=== PATIENT | female | born 1940 | race Caucasian/White ===

== ENCOUNTER 2019-01-07 02:24 | Observation (INO) ==
--- NOTE | 2019-01-07 02:54 | ERNOTE ---
Time Seen by Provider: 01/07/19 02:45 Stated Complaint: SOB.DIZZY Presenting Symptoms:: cough Source: patient Exam Limitations: no limitations Immunizations: IMMUNIZATION HX Immunizations Up to Date Yes History of Influenza Vaccine Yes Hx Pneumococcal Vaccination Yes Allergies/Adverse Reactions: Allergies azithromycin Allergy (Verified 01/07/19 02:35) RASH Sulfa (Sulfonamide Antibiotics) Allergy (Verified 01/07/19 02:35) RASH Home Medications: HOME MEDICATIONS Polyethylene Glycol 3350 [Miralax] 17 gm PO DAILY #527 gm 05/05/15 [Last Taken Unknown] cholecalciferol (vitamin D3) 5,000 unit capsule 5,000 unit PO DAILY 05/24/18 [Last Taken 10/29/17] mecobalamin (vitamin B12) PO DAILY 05/24/18 [Last Taken 10/22/16 15:32] ranitidine 150 mg tablet 150 mg PO BID tab 05/24/18 [Last Taken 12/08/17 15:20] topiramate 25 mg tablet 25 mg PO BID 05/24/18 [Last Taken 12/09/17 15:22] albuterol sulfate HFA 90 mcg/actuation aerosol inhaler 2 inh IH Q4H PRN #18 g 05/31/18 [Last Taken 01/07/19] buspirone 15 mg tablet 15 mg PO TID #90 tab 07/28/18 [Last Taken Unknown] atorvastatin 20 mg tablet 20 mg PO DAILY #30 tab 08/26/18 [Last Taken Unknown] blood sugar diagnostic strips See Dose Instructions .ROUTE .MEDSUPPLY #100 ea 08/28/18 [Last Taken Unknown] fluticasone 50 mcg/actuation nasal spray,suspension 2 spray AJAY DAILY #47.4 g 08/28/18 [Last Taken Unknown] metoprolol succinate ER 25 mg tablet,extended release 24 hr 12.5 mg PO DAILY #45 tab 08/28/18 [Last Taken Unknown] lancets See Dose Instructions .ROUTE .MEDSUPPLY #100 ea 09/01/18 [Last Taken Unknown] gabapentin 300 mg capsule 300 mg PO HS #90 cap 10/29/18 [Last Taken Unknown] metformin 500 mg tablet 500 mg PO BID #60 tab 11/04/18 [Last Taken Unknown] ipratropium bromide 0.02 % solution for inhalation 2.5 ml IH Q6H #150 ml 11/11/18 [Last Taken Unknown] - History of Present Ilness Narrative: Pt had a sinus infection a week ago. finished antibiotics but continues to have shortness of breath. Timing: constant Severity: moderate Frequency/Possible Cause: Reports: occasional episodes Modifying Factors - Improves: Reports: antibiotics - did not help Modifying Factors - Worsens: Reports: coughing, lying down Associated Symptoms: Reports: chest pain/soreness, shortness of breath, nasal congestion, nasal drainage Prior Treatment: Reports: recently seen, treated by physician Review of Systems - Review of Systems Constitutional: Present: recent illness, fever, chills, fatigue, malaise EYE: Absent: vision changes ENT: Present: nose congestion, nasal drainage Respiratory: Present: shortness of breath, cough Cardiology: Present: palpitations Gastrointestinal/Abdominal: Absent: nausea, vomiting Genitourinary: Absent: dysuria Musculoskeletal: Absent: back pain, muscle pain Skin: Absent: rash Neurological: Present: dizziness/light-headedness Endocrine: Present: excessive sweating Medical History (Last Reviewed 01/07/19 @ 06:36 by Nelson Pang DO) Allergic rhinitis Anxiety Asthma COPD (chronic obstructive pulmonary disease) Colonic polyp Diabetes mellitus, type II Diverticulitis Eczema GERD (gastroesophageal reflux disease) Onset Date: 04/28/14 Trial with zantac, may also help her AR Hyperlipidemia Hypertension, essential IBS (irritable bowel syndrome) Migraine Onset Date: 04/28/14 Osteoarthritis Osteopenia Onset Date: 10/29/17 Ovarian cyst Restless leg syndrome Sigmoid stricture ureteral stent placement Onset Date: 03/05/05 Aher/ureteral stents Surgical History: Surgical History (Last Reviewed 01/07/19 @ 06:36 by Nelson Pang DO) H/O cystoscopy Onset Date: 03/05/05 Aher/bilateral retrograde pyelogram H/O exploratory laparotomy Onset Date: 1997 H/O ventral hernia repair Onset Date: 09/10/05 Hebertguely/composite mesh History of bowel resection Onset Date: 03/05/05 Kulwant; low anterior resection w/end to end anastomosis, lysis of adhesions, closure of midline abd hernias History of colonoscopy Onset Date: 06/15/10 with Biopsy, Kulwant, adenomatous tissue, 06/15/2010 tubular adenoma History of esophagogastroduodenoscopy (EGD) Onset Date: 07/09/06 04/02/2006, 07/09/2006 Peasley/Mild chronic antrum gastritis History of knee replacement procedure of right knee Onset Date: 11/19/06 History of salpingo-oophorectomy Onset Date: 1997 Left Hx of arthroscopic knee surgery Onset Date: ~2006 right, 1999' and 2006 S/P epidural steroid injection Onset Date: 01/08/08 09/24/2004, 01/08/2008 L5-S1 Family History: Family History (Last Reviewed 01/07/19 @ 06:36 by Nelson Pang DO) Brother Healthy x2 Brother No problems noted. Father , 70"s Diabetes Heart disease Mother , 82 Cancer/unknown type Cancer Sister No problems noted. Sister No problems noted. Social History: Preferred Language Indonesian Smoking Status Former smoker Psych History No pertinent hx Alcohol Use none Drug Use none (Last Reviewed 12/21/18 @ 10:51 by Tamie Cabrera RN) No Social History Section defined Physical Exam - Physical Exam General Appearance: Present: wd/wn, alert, mild distress Head Exam: Present: normal inspection, no evidence of injury Ears, Nose, Throat: Present: nasal congestion, normal pharynx Neck: Present: normal inspection, nontender Respiratory: Present: no respiratory distress, expiration (prolonged), wheezing - expiratory, intermittent Cardiovascular/Chest: Present: no murmur, tachycardia Gastrointestinal/Abdominal: Present: normal bowel sounds, nontender, nondistended Back Exam: Present: normal inspection, no CVA tenderness Extremity Exam: Present: normal inspection, normal range of motion, no edema Neurological Exam: Present: alert, oriented, no motor/sensory deficits Skin Exam: Present: normal color, warm/dry Lymphatic Exam: Present: no adenopathy Progress - Results and Orders Patient's Lab Results:: I have reviewed the patient's lab results. - Vital Signs Patient's Vital Signs:: I have reviewed the patient's vital signs. Vital Signs: Vital Signs 01/07/19 02:31 Temperature 36.7 C Pulse Rate 127 H Respiratory Rate 26 H Blood Pressure 133/76 O2 Sat by Pulse Oximetry 91 L - EKG EKG #1 EKG: supraventricular tachycardia, nonspecific ST T wave changes EKG read: Interp. by me - X-Ray X-Ray #1 X-Ray: chest Interpretation: Interp. by me X-ray Comments: Hyperventilation, no infiltrate or effusion. - CT/Ultrasound CT/Ultrasound Narrative: CTA chest- No PE, no infiltrate or effusion thyroid nodularity US thyroid may be helpful. - Progress/Reassessment Chief Complaint: Upper Respiratory Symptoms Progress:: Improved Progress Note-Subjective: 01/07/19 06:[address] Joyce at 05:30 about the patient and she agrees with observation admission. Departure Clinical Impression: Acute exacerbation of chronic obstructive pulmonary disease (COPD) UTI (urinary tract infection) Qualifiers: Urinary tract infection type: acute pyelonephritis Qualified Code(s): N10 - Acute pyelonephritis Sepsis Qualifiers: Sepsis type: sepsis due to unspecified organism Qualified Code(s): A41.9 - Sepsis, unspecified organism - Departure Disposition: Still a patient Condition: Fair
[2019-01-07 03:10] LABS: Hemoglobin 15.2 gm/dL (12.5-16.0); Mean Cell Volume 97.7 fl (78-100); Mean Corpuscular Hemoglobin 32.3 pg (27-31); Mean Platelet Volume 8.9 fl (8-12.5); Neutrophil # 13.6 K/mm3 (1.3-6.0); Neutrophil % 88.4 % (42-75.0); Platelet Count 173 K/mm3 (150-450); Red Blood Count 4.71 M/mm3 (4.2-5.4); Red Cell Distribution Width 12.5 % (11.5-14.0); White Blood Count 15.4 K/mm3 (4.0-10.5)
[2019-01-07 03:33] LABS: Albumin * 3.8 gm/dl (3.4-5.0); Anion Gap 16.9 mmol/L (6.8-13.8); BUN/Creatinine Ratio 27.4 (9.0-21.6); Bilirubin, Total 0.9 mg/dL (0.0-1.1); Ca. Corrected For Albumin 9.1 mg/dL (8.4-10.2); Calcium * 9.3 mg/dL (7.9-10.9); Carbon Dioxide 24.9 mmol/L (24-32.6); Potassium 3.8 mmol/L (3.4-4.6); Total Protein 7.1 gm/dL (6.2-8.2)
[2019-01-07 03:46] LABS: Urine Bilirubin Negative (NEGATIVE); Urine Blood 25 /ul (NEGATIVE); Urine Ketone 5 mg/dL (NEGATIVE); Urine Protein 30 mg/dL (NEGATIVE); Urine Urobilinogen Normal (NORMAL)
[2019-01-07 03:52] LABS: Urine Appearance Cloudy (CLEAR); Urine Bacteria 3+; Urine Color Yellow; Urine Nitrite Positive (NEGATIVE); Urine RBC TRACE /hpf (0-5); Urine WBC >50 /hpf (0-5)
[2019-01-07] MEDS ORDERED: PIPERACILLIN SODIUM/TAZOBACTAM 3.375 GM in DEXTROSE 5 % IN WATER 100 ML IV ONE ×2 (06:00)
[2019-01-07] MEDS ORDERED: ALBUTEROL SULFATE 2.5 MG/0.5 ML VIAL.NEB IH PRN ×2 (06:25→07:00)
[2019-01-07] MEDS: ALBUTEROL SULFATE/IPRATROPIUM 3 ML NEBU IH SCH ×3 (07:15→18:19)
[2019-01-07] MEDS ORDERED: NORMAL SALINE 1,000 ML IV ONE (07:50)
--- NOTE | 2019-01-07 08:19 | HP ---
Chief Complaint - Chief Complaint Date of Service: 01/07/19 Time of Service: 08:14 Chief Complaint: Short of breath, with chills. History of Present Illness: Patient states that she has had some breathing issues for the last couple weeks. She has been seen and treated for sinus infection, but had only minimal improvement of her shortness of breath. She denies any fevers or chills, chest pain, PND or orthopnea. She denies any lower extremity swelling or leg cramps when walking or any urinary tract symptoms other than frequency. The day prior to admission she had significant worsening of her shortness of breath, associated with chills, but still no fevers. In the ER she was noted to be in moderate respiratory distress, with respiratory rate in the mid 20s and oxygen levels down to 90% on room air. Chest x-ray did show hyperinflation of the lungs with emphysematous changes, but no focal findings concerning for pneumonia. Her white count was 15,000 and her lactic acid was 2.4. Her d-dimer was slightly elevated at 0.7, so CTA of the chest was done but no findings consistent with a PE. UA did show concerns for possible pyelonephritis. Patient was admitted at least for observation given her significant labs, tachypnea and relative hypoxia. Also of concern was her elevated lactic acid. She was started on IV antibiotics, O2 to keep her sats in the low to mid 90s and given scheduled DuoNeb treatments. No IV steroids were given due to her history of diabetes and her sugars already been in the 200s. After seeing patient she does not look septic, but definitely is not her typical baseline. I do anticipate her being able to go home after with one midnight stay. Medical History (Last Reviewed 01/07/19 @ 08:29 by Verito Murphy RN) Allergic rhinitis Anxiety Asthma COPD (chronic obstructive pulmonary disease) Colonic polyp Diabetes mellitus, type II Diverticulitis Eczema GERD (gastroesophageal reflux disease) Onset Date: 04/28/14 Trial with zantac, may also help her AR Hyperlipidemia Hypertension, essential IBS (irritable bowel syndrome) Migraine Onset Date: 04/28/14 Osteoarthritis Osteopenia Onset Date: 10/29/17 Ovarian cyst Restless leg syndrome Sigmoid stricture ureteral stent placement Onset Date: 03/05/05 Aher/ureteral stents Surgical History: Surgical History (Last Reviewed 01/07/19 @ 08:30 by Verito Murphy RN) H/O cystoscopy Onset Date: 03/05/05 Aher/bilateral retrograde pyelogram H/O exploratory laparotomy Onset Date: 1997 H/O ventral hernia repair Onset Date: 09/10/05 Tinguely/composite mesh History of bowel resection Onset Date: 03/05/05 Tinguely; low anterior resection w/end to end anastomosis, lysis of adhesions, closure of midline abd hernias History of colonoscopy Onset Date: 06/15/10 with Biopsy, Kulwant, adenomatous tissue, 06/15/2010 tubular adenoma History of esophagogastroduodenoscopy (EGD) Onset Date: 07/09/06 04/02/2006, 07/09/2006 Peasley/Mild chronic antrum gastritis History of knee replacement procedure of right knee Onset Date: 11/19/06 History of salpingo-oophorectomy Onset Date: 1997 Left Hx of arthroscopic knee surgery Onset Date: ~2006 right, 1999's and 2006 S/P epidural steroid injection Onset Date: 01/08/08 09/24/2004, 01/08/2008 L5-S1 Family History: Family History (Last Updated 01/07/19 @ 08:31 by Verito Murphy RN) Brother Healthy x2 COPD (chronic obstructive pulmonary disease) Brother No problems noted. Father , 70"s Diabetes Heart disease Mother , 82 Cancer/unknown type Cancer Sister No problems noted. Sister No problems noted. Social History: Preferred Language Ivorian Smoking Status Former smoker Psych History No pertinent hx Alcohol Use none Drug Use none (Last Reviewed 12/21/18 @ 10:51 by Tamie Cabrera RN) No Social History Section defined Review Of Systems (GEN) - Review of Systems Generalized/Overall Review: Present: Weakness, Chills, Fatigue. Absent: Fever EENTM: Present: No Symptoms Reported Respiratory: Present: Cough, Shortness of Breath, Wheezing. Absent: Orthopnea Cardiac: Absent: Chest Pain, Edema, Palpitations Abdominal: Present: No Symptoms Reported Genitourinary: Present: Frequency. Absent: Burning, Itching, Urgency Musculoskeletal: Present: Back Pain Neurological: Present: No Symptoms Reported Skin: Present: No Symptoms Reported Endocrine: Present: No Symptoms Reported Immunizations: IMMUNIZATION HX Immunizations Up to Date Yes History of Influenza Vaccine Yes Hx Pneumococcal Vaccination Yes Allergies/Adverse Reactions: Allergies Allergy/AdvReac Type Severity Reaction Status Date / Time azithromycin Allergy RASH Verified 01/07/19 08:31 Sulfa (Sulfonamide Allergy RASH Verified 01/07/19 08:31 Antibiotics) Home Medications: HOME MEDICATIONS cholecalciferol (vitamin D3) 5,000 unit capsule 5,000 unit PO DAILY 05/24/18 [Last Taken 10/29/17] ranitidine 150 mg tablet 150 mg PO BID tab 05/24/18 [Last Taken 12/08/17 15:20] topiramate 25 mg tablet 25 mg PO BID 05/24/18 [Last Taken 12/09/17 15:22] atorvastatin 20 mg tablet 20 mg PO DAILY #30 tab 08/26/18 [Last Taken Unknown] blood sugar diagnostic strips See Dose Instructions .ROUTE .MEDSUPPLY #100 ea 08/28/18 [Last Taken Unknown] fluticasone 50 mcg/actuation nasal spray,suspension 2 spray AJAY DAILY #47.4 g 08/28/18 [Last Taken Unknown] metoprolol succinate ER 25 mg tablet,extended release 24 hr 12.5 mg PO DAILY #45 tab 08/28/18 [Last Taken Unknown] lancets See Dose Instructions .ROUTE .MEDSUPPLY #100 ea 09/01/18 [Last Taken Unknown] gabapentin 300 mg capsule 300 mg PO HS #90 cap 10/29/18 [Last Taken Unknown] metformin 500 mg tablet 500 mg PO BID #60 tab 11/04/18 [Last Taken Unknown] Albuterol Sulfate [Proair Hfa] 2 puff INHALATION Q4H PRN 01/07/19 [Last Taken Unknown] Buspirone HCl 15 mg PO TID PRN 01/07/19 [Last Taken Unknown] Cyanocobalamin (Vitamin B-12) [Vitamin B12] 2,500 mcg PO DAILY 01/07/19 [Last Taken Unknown] Ipratropium [place] 2.5 ml INHALATION Q6H PRN 01/07/19 [Last Taken Unknown] Polyethylene Glycol 3350 [Miralax] 17 gm PO DAILY PRN 01/07/19 [Last Taken Unknown] Exam - Exam Vital Signs: Vital Signs - Last Taken Temp 36.7 C 01/07/19 02:31 Pulse 92 01/07/19 07:25 Resp 20 02/14/19 07:25 BP 136/70 01/07/19 05:30 Pulse Ox 92 L 01/07/19 07:15 Constitutional: Present: Alert, Oriented x3, Cooperative, Mild distress, Elderly ENT Exam: Present: hearing grossly normal Eye Exam: bilateral eye: normal inspection, PERRL, EOMI Neck: Present: supple Back Exam: Present: no CVA tenderness, muscle spasm - R lower back Respiratory: Present: chest non-tender, decreased breath sounds - right base, accessory muscle use, wheezing, expiration (prolonged) Cardiovascular/Chest: Present: regular rate, rhythm, no murmur Abdomen: Present: Normal bowel sounds, soft, nontender Extremity: Present: no pedal edema, no calf tenderness Skin Exam: Present: normal color Neurologic: Present: home care provider II-XII nml as tested, alert, oriented x 3 Appearance: Present: appropriate appearance, appropriate insight, neat Eye contact: Present: cooperative, good eye contact, normal speech Thoughts: Present: normal thought pattern, no apparent hallucination Diagnostic Studies: Abnormal Lab Results 01/07/19 01/07/19 01/07/19 Range/Units 03:05 03:05 03:05 WBC 15.4 H (4.0-10.5) K/mm3 MCH 32.3 H (27-31) pg Immature Gran % (Auto) 0.50 H (0.001-0.429) % Immature Gran # (Auto) 0.07 H (0.000-0.0310) K/mm3 Neutrophils % 88.4 H (42-75.0) % Lymphocytes % 4.2 L (20-51) % Neutrophils # 13.6 H (1.3-6.0) K/mm3 Lymphocytes # 0.64 L (1.5-3.5) k/mm3 D-Dimer 0.74 H (0.19-0.49) ug/mL pO2 (83.0-108.0) mmHg Total CO2 (19.0-24.0) mmol/L Plasma Sodium 143 H (130-142) mmol/L Anion Gap 16.9 H (6.8-13.8) mmol/L BUN/Creatinine Ratio 27.4 H (9.0-21.6) Random Glucose 222 H (70-110) mg/dL Lactic Acid, Venous (0.4-2.0) mmol/L ALT 18 L (19-67) U/L Urine Protein (NEGATIVE) mg/dL Urine Glucose (UA) (NEGATIVE) mg/dL Urine Blood (NEGATIVE) /ul Urine Nitrate (NEGATIVE) Ur Leukocyte Esterase (NEGATIVE) /ul Urine WBC (0-5) /hpf Urine Bacteria (NONE) 01/07/19 01/07/19 01/07/19 Range/Units 03:05 03:44 03:55 WBC (4.0-10.5) K/mm3 MCH (27-31) pg Immature Gran % (Auto) (0.001-0.429) % Immature Gran # (Auto) (0.000-0.0310) K/mm3 Neutrophils % (42-75.0) % Lymphocytes % (20-51) % Neutrophils # (1.3-6.0) K/mm3 Lymphocytes # (1.5-3.5) k/mm3 D-Dimer (0.19-0.49) ug/mL pO2 66.3 L (83.0-108.0) mmHg Total CO2 24.2 H (19.0-24.0) mmol/L Plasma Sodium (130-142) mmol/L Anion Gap (6.8-13.8) mmol/L BUN/Creatinine Ratio (9.0-21.6) Random Glucose (70-110) mg/dL Lactic Acid, Venous 2.4 H* (0.4-2.0) mmol/L ALT (19-67) U/L Urine Protein 30 H (NEGATIVE) mg/dL Urine Glucose (UA) 100 H (NEGATIVE) mg/dL Urine Blood 25 H (NEGATIVE) /ul Urine Nitrate Positive H (NEGATIVE) Ur Leukocyte Esterase 100 H (NEGATIVE) /ul Urine WBC >50 H (0-5) /hpf Urine Bacteria 3+ H (NONE) 01/07/19 Range/Units 07:08 WBC (4.0-10.5) K/mm3 MCH (27-31) pg Immature Gran % (Auto) (0.001-0.429) % Immature Gran # (Auto) (0.000-0.0310) K/mm3 Neutrophils % (42-75.0) % Lymphocytes % (20-51) % Neutrophils # (1.3-6.0) K/mm3 Lymphocytes # (1.5-3.5) k/mm3 D-Dimer (0.19-0.49) ug/mL pO2 (83.0-108.0) mmHg Total CO2 (19.0-24.0) mmol/L Plasma Sodium (130-142) mmol/L Anion Gap (6.8-13.8) mmol/L BUN/Creatinine Ratio (9.0-21.6) Random Glucose (70-110) mg/dL Lactic Acid, Venous 2.4 H* (0.4-2.0) mmol/L ALT (19-67) U/L Urine Protein (NEGATIVE) mg/dL Urine Glucose (UA) (NEGATIVE) mg/dL Urine Blood (NEGATIVE) /ul Urine Nitrate (NEGATIVE) Ur Leukocyte Esterase (NEGATIVE) /ul Urine WBC (0-5) /hpf Urine Bacteria (NONE) Laboratory Results WBC 15.4 K/mm3 (4.0-10.5) H 01/07/19 03:05 RBC 4.71 M/mm3 (4.2-5.4) 01/07/19 03:05 Hgb 15.2 gm/dL (12.5-16.0) 01/07/19 03:05 Hct 46.0 % (37.0-47.0) 01/07/19 03:05 MCV 97.7 fl (78-100) 01/07/19 03:05 MCH 32.3 pg (27-31) H 01/07/19 03:05 MCHC 33.0 g/dl (32-36) 01/07/19 03:05 RDW 12.5 % (11.5-14.0) 01/07/19 03:05 Plt Count 173 K/mm3 (150-450) 01/07/19 03:05 MPV 8.9 fl (8-12.5) 01/07/19 03:05 Immature Gran % (Auto) 0.50 % (0.001-0.429) H 01/07/19 03:05 Immature Gran # (Auto) 0.07 K/mm3 (0.000-0.0310) H 01/07/19 03:05 Neutrophils % 88.4 % (42-75.0) H 01/07/19 03:05 Lymphocytes % 4.2 % (20-51) L 01/07/19 03:05 Monocytes % 5.9 % (0.0-9) 01/07/19 03:05 Eosinophils % 0.6 % (0.0-3.0) 01/07/19 03:05 Basophils % 0.4 % (0.0-1.0) 01/07/19 03:05 Nucleated RBC % 0.0 k/mm3 (0-1) 01/07/19 03:05 Neutrophils # 13.6 K/mm3 (1.3-6.0) H 01/07/19 03:05 Lymphocytes # 0.64 k/mm3 (1.5-3.5) L 01/07/19 03:05 Monocytes # 0.9 k/mm3 (0.0-1.0) 01/07/19 03:05 Eosinophils # 0.1 k/mm3 (0.0-0.7) 01/07/19 03:05 Absolute Basophils 0.1 k/mm3 (0.0-0.1) 01/07/19 03:05 D-Dimer 0.74 ug/mL (0.19-0.49) H 01/07/19 03:05 pCO2 34.4 mmHg (32.0-45.0) 01/07/19 03:55 pO2 66.3 mmHg (83.0-108.0) L 01/07/19 03:55 HCO3 23.2 mmol/L (21.0-28.0) 01/07/19 03:55 Total CO2 24.2 mmol/L (19.0-24.0) H 01/07/19 03:55 Base Excess -0.2 mmol/L (-2.0-3.0) 01/07/19 03:55 ABG pH 7.45 (7.35-7.45) 01/07/19 03:55 ABG O2 Sat (Measured) 94.0 % (94.0-98.0) 01/07/19 03:55 Sodium 141 mmol/L (132-142) 01/07/19 03:05 Plasma Sodium 143 mmol/L (130-142) H 01/07/19 03:05 Potassium 3.8 mmol/L (3.4-4.6) 01/07/19 03:05 Chloride 103 mmol/L (97-106) 01/07/19 03:05 Carbon Dioxide 24.9 mmol/L (24-32.6) 01/07/19 03:05 Anion Gap 16.9 mmol/L (6.8-13.8) H 01/07/19 03:05 BUN 23 mg/dL (3-23) 01/07/19 03:05 Creatinine 0.84 mg/dL (0.4-1.4) 01/07/19 03:05 Est GFR (Non-Af Amer) 70 mL/min (60-130) 01/07/19 03:05 BUN/Creatinine Ratio 27.4 (9.0-21.6) H 01/07/19 03:05 Random Glucose 222 mg/dL (70-110) H 01/07/19 03:05 Lactic Acid, Venous 2.4 mmol/L (0.4-2.0) H* 01/07/19 07:08 Calcium 9.3 mg/dL (7.9-10.9) 01/07/19 03:05 Calcium Adj for Albumin 9.1 mg/dL (8.4-10.2) 01/07/19 03:05 Total Bilirubin 0.9 mg/dL (0.0-1.1) 01/07/19 03:05 AST 15 U/L (0-48) 01/07/19 03:05 ALT 18 U/L (19-67) L 01/07/19 03:05 Alkaline Phosphatase 71 U/L (50-170) 01/07/19 03:05 B-Natriuretic Peptide 70 pg/mL (5-550) 01/07/19 03:05 Total Protein 7.1 gm/dL (6.2-8.2) 01/07/19 03:05 Albumin 3.8 gm/dl (3.4-5.0) 01/07/19 03:05 Urine Color Yellow 01/07/19 03:44 Urine Appearance Cloudy (CLEAR) 01/07/19 03:44 Urine pH 6.0 pH (5.0-7.0) 01/07/19 03:44 Ur Specific [place] 1.020 SP.GR. (1.005-1.010) 01/07/19 03:44 Urine Protein 30 mg/dL (NEGATIVE) H 01/07/19 03:44 Urine Glucose (UA) 100 mg/dL (NEGATIVE) H 01/07/19 03:44 Urine Ketones 5 mg/dL (NEGATIVE) 01/07/19 03:44 Urine Blood 25 /ul (NEGATIVE) H 01/07/19 03:44 Urine Nitrate Positive (NEGATIVE) H 01/07/19 03:44 Urine Bilirubin Negative mg/dl (NEGATIVE) 01/07/19 03:44 Prot Sulfosalicylic Acd 1+ mg/dL (0) 01/07/19 03:44 Urine Urobilinogen Normal EU/dl (NORMAL) 01/07/19 03:44 Ur Leukocyte Esterase 100 /ul (NEGATIVE) H 01/07/19 03:44 Urine RBC Trace /hpf (0-5) 01/07/19 03:44 Urine WBC >50 /hpf (0-5) H 01/07/19 03:44 Ur Epithelial Cells 0-5 /hpf (0-5) 01/07/19 03:44 Urine Bacteria 3+ (NONE) H 01/07/19 03:44 Urine Culture Comments Culture to follow 01/07/19 03:44 Assessment/Plan - Assessment/Plan (1) UTI (urinary tract infection) Assessment: Given UA findings, chills and leukocytosis and back pain and elevated lactic acid, these are consistent with probable pyelonephritis. Patient will receive IV Rocephin. Urine cultures are pending. We will look to transition her to oral antibiotics at time of discharge. Problem: Acute Qualifiers: Urinary tract infection type: acute pyelonephritis Qualified Code(s): N10 - Acute pyelonephritis (2) Acute exacerbation of chronic obstructive pulmonary disease (COPD) Assessment: For acute on chronic COPD, will do scheduled DuoNeb treatments. Give her a dose of dexamethasone orally and again cover her with Rocephin which will also cover her UTI. She is currently on oxygen but believe we can wean her off at this, but will need to be off her oxygen prior to discharge. Problem: Acute (3) Diabetes Assessment: For her diabetes her blood sugar was 222 in the ER. Will cover with low-dose sliding scale insulin increasing this as needed. Put her on a consistent carbohydrate diet Problem: Chronic Qualifiers: Diabetes mellitus type: type 2 Diabetes mellitus long-term insulin use: without long-term use Diabetes mellitus complication status: without complication Qualified Code(s): E11.9 - Type 2 diabetes mellitus without complications (4) Discharge planning issues Assessment: Anticipate patient being able to be discharged after one midnight stay. We will look to transition her to p.o. medications prior to discharge. Problem: Acute
[2019-01-07] MEDS: DEXAMETHASONE 4 MG TABLET PO SCH (08:54)
[2019-01-07] MEDS: INSULIN REGULAR, HUMAN 100 UNITS/ML VIAL SC SCH ×3 (11:54→20:37)
[2019-01-08] MEDS: ACETAMINOPHEN 325 MG TABLET PO PRN ×2 (01:14→10:05)
[2019-01-08] MEDS: ALBUTEROL SULFATE/IPRATROPIUM 3 ML NEBU IH SCH ×3 (01:15→12:58)
[2019-01-08 05:08] LABS: Hematocrit 46.3 % (37.0-47.0); Hemoglobin 14.7 gm/dL (12.5-16.0); Mean Cell Volume 103.6 fl (78-100); Mean Corpuscular Hemoglobin 32.9 pg (27-31); Mean Corpuscular Hgb Conc 31.7 g/dl (32-36); Mean Platelet Volume 9.7 fl (8-12.5); Neutrophil # 11.2 K/mm3 (1.3-6.0); Neutrophil % 78.6 % (42-75.0); Platelet Count 164 K/mm3 (150-450); Red Blood Count 4.47 M/mm3 (4.2-5.4); Red Cell Distribution Width 12.6 % (11.5-14.0); White Blood Count 14.3 K/mm3 (4.0-10.5)
[2019-01-08] MEDS: INSULIN REGULAR, HUMAN 100 UNITS/ML VIAL SC SCH ×2 (06:47→11:57)
[2019-01-08] MEDS ORDERED: BUSPIRONE HCL 15 MG PO PRN (06:48)
[2019-01-08] MEDS ORDERED: POLYETHYLENE GLYCOL 3350 119 GM BTL PO PRN (06:48)
[2019-01-08] MEDS ORDERED: busPIRone HCL 5 MG TABLET PO PRN (07:15)
[2019-01-08] MEDS ORDERED: TOPIRAMATE 50 MG TABLET PO SCH (09:00)
[2019-01-08] MEDS ORDERED: FLUTICASONE PROPIONATE 120 SPRAY INHALER NS SCH (09:00)
[2019-01-08] MEDS ORDERED: METOPROLOL SUCCINATE 25 MG TABLET.SA PO SCH (09:00)
[2019-01-08] MEDS ORDERED: FAMOTIDINE 20 MG TABLET PO SCH (09:00)
[2019-01-08] MEDS ORDERED: metFORMIN HCL 500 MG TABLET PO SCH (09:00)
[2019-01-08] MEDS ORDERED: CIPROFLOXACIN HCL 500 MG TABLET PO SCH (09:00)
[2019-01-08] MEDS: DEXAMETHASONE 4 MG TABLET PO SCH (10:05)
--- NOTE | 2019-01-08 12:25 | DS ---
(1) UTI (urinary tract infection) Diagnosis(s): given her leukocytosis, urine findings c/w UTI, unilateral back pain and elevated lactic acid, findings were consistent with pyelonephritis. Patient was admitted for hobs due to significant findings and ill appearance. She was initially given a dose of Zosyn, which was followed with a 1 g dose of Rocephin which did seem to improve her condition. She will be switched to p.o. Cipro at time of discharge with urine culture still pending. She was feeling better and though not back to her baseline. Problem: Acute Qualifiers: Urinary tract infection type: acute pyelonephritis Qualified Code(s): N10 - Acute pyelonephritis (2) Acute exacerbation of chronic obstructive pulmonary disease (COPD) Diagnosis(s): Patient had significant and expiratory wheezes and poor air exchange at time of admission. CTA done secondary to elevated d-dimer and her respiratory distress did show findings consistent with a bronchitis and emphysema. She was put on scheduled DuoNeb treatments and given daily dose of dexamethasone. Her air exchange and lung function were much improved at time of discharge. She initially was placed on some oxygen to keep her sats in the mid 90s. She was weaned off oxygen, maintaining her sats at 91%. He will be discharged home on Cipro and dexamethasone. Blood sugars did not appear to be greatly affected with his dose of dexamethasone. Problem: Acute (3) Diabetes Diagnosis(s): For her diabetes we placed on a consistent carbohydrate diet. Her sugars remained in the low 200s upper 100s with a low-dose sliding scale being used. She will be discharged home on her usual regimen, with expectations of her sugars improving as her illness improves. Her metformin was held due to contrast CTA being done for elevated D-dimer and respiratory distress. She will have a repeat BMP on 01/09 and can resume her metformin after that, but is to hold her metformin until then. Problem: Chronic Qualifiers: Diabetes mellitus type: type 2 Diabetes mellitus half-way insulin use: without ferry terminal agent use Diabetes mellitus complication status: without complication Qualified Code(s): E11.9 - Type 2 diabetes mellitus without complications (4) Discharge planning issues Problem: Acute Description of Stay: See individual problems above for details. Procedures Performed: none Results and Findings: Pending Mircobiology Results 01/07/19 03:44 Urine,Voided Urine Culture - Preliminary Gram Negative Bacilli 01/07/19 06:20 Blood Blood Culture - Preliminary NO GROWTH 24 HOURS 01/07/19 05:00 Blood Blood Culture - Preliminary NO GROWTH 24 HOURS Lab Pending Results 01/07/19 03:05: Sodium 141, Plasma Sodium 143 H, Potassium 3.8, Chloride 103, Carbon Dioxide 24.9, Anion Gap 16.9 H, BUN 23, Creatinine 0.84, Est GFR (Non-Af Amer) 70, BUN/Creatinine Ratio 27.4 H, Random Glucose 222 H, Calcium 9.3, Calcium Adj for Albumin 9.1, Total Bilirubin 0.9, AST 15, ALT 18 L, Alkaline Phosphatase 71, B-Natriuretic Peptide 70, Total Protein 7.1, Albumin 3.8 01/07/19 03:05: WBC 15.4 H, RBC 4.71, Hgb 15.2, Hct 46.0, MCV 97.7, MCH 32.3 H, MCHC 33.0, RDW 12.5, Plt Count 173, MPV 8.9, Immature Gran % (Auto) 0.50 H, Immature Gran # (Auto) 0.07 H, Neutrophils % 88.4 H, Lymphocytes % 4.2 L, Monocytes % 5.9, Eosinophils % 0.6, Basophils % 0.4, Nucleated RBC % 0.0, Neutro phils # 13.6 H, Lymphocytes # 0.64 L, Monocytes # 0.9, Eosinophils # 0.1, Absolute Basophils 0.1 01/07/19 03:05: D-Dimer 0.74 H 01/07/19 03:05: Lactic Acid, Venous 2.4 H* 01/07/19 03:44: Urine Color Yellow, Urine Appearance Cloudy, Urine pH 6.0, Ur Specific [place] 1.020, Urine Protein 30 H, Urine Glucose (UA) 100 H, Urine Ketones 5, Urine Blood 25 H, Urine Nitrate Positive H, Urine Bilirubin Negative, Prot Sulfosalicylic Acd 1+, Urine Urobilinogen Normal, Ur Leukocyte Esterase 100 H, Urine RBC Trace, Urine WBC >50 H, Ur Epithelial Cells 0-5, Urine Bacteria 3+ H, Urine Culture Comments Culture to follow 01/07/19 03:55: pCO2 34.4, pO2 66.3 L, HCO3 23.2, Total CO2 24.2 H, Base Excess -0.2, ABG pH 7.45, ABG O2 Sat (Measured) 94.0 01/07/19 07:08: Lactic Acid, Venous 2.4 H* 01/07/19 10:56: Lactic Acid, Venous 1.8 01/08/19 05:05: WBC 14.3 H, RBC 4.47, Hgb 14.7, Hct 46.3, MCV 103.6 H, MCH 32.9 H, MCHC 31.7 L, RDW 12.6, Plt Count 164, MPV 9.7, Immature Gran % (Auto) 0.50 H, Immature Gran # (Auto) 0.07 H, Neutrophils % 78.6 H, Lymphocytes % 11.8 L, Monocytes % 8.8, Eosinophils % 0.1, Basophils % 0.2, Nucleated RBC % 0.0, Neutrophils # 11.2 H, Lymphocytes # 1.68, Monocytes # 1.3 H, Eosinophils # 0.0, Absolute Basophils 0.0 Discharge Location: Home Disposition: Home self-care Condition: Fair Discharge Activity: Activity as tolerated Discharge Diet: Consistent carbs Referrals: Ángel Laws MD [Primary Care Provider] - One Week Additional Patient Instructions (free text): -Please make TCM appointment unless long-term discharge. Thank you! Vaishali @ [phone]. Prescriptions (Any new or edited meds): Ciprofloxacin HCl [Cipro] 500 mg PO BID #12 tab Dexamethasone [Decadron] 4 mg PO DAILY #4 tab Complete Home Medications List: Complete Home Medication List: cholecalciferol (vitamin D3) 5,000 unit capsule 5,000 unit PO DAILY 05/24/18 ranitidine 150 mg tablet 150 mg PO BID tab 05/24/18 topiramate 25 mg tablet 25 mg PO BID 05/24/18 atorvastatin 20 mg tablet 20 mg PO DAILY #30 tab 08/26/18 blood sugar diagnostic strips See Dose Instructions .ROUTE .MEDSUPPLY #100 ea 08/28/18 fluticasone 50 mcg/actuation nasal spray,suspension 2 spray AJAY DAILY #47.4 g 08/28/18 metoprolol succinate ER 25 mg tablet,extended release 24 hr 12.5 mg PO DAILY #45 tab 08/28/18 lancets See Dose Instructions .ROUTE .MEDSUPPLY #100 ea 09/01/18 gabapentin 300 mg capsule 300 mg PO HS #90 cap 10/29/18 metformin 500 mg tablet 500 mg PO BID #60 tab 11/04/18 Albuterol Sulfate [Proair Hfa] 2 puff INHALATION Q4H PRN 01/07/19 Buspirone HCl 15 mg PO TID PRN 01/07/19 Cyanocobalamin (Vitamin B-12) [Vitamin B12] 2,500 mcg PO DAILY 01/07/19 Ipratropium [place] 2.5 ml INHALATION Q6H PRN 01/07/19 Polyethylene Glycol 3350 [Miralax] 17 gm PO DAILY PRN 01/07/19 Acetaminophen [Tylenol] 325 mg PO Q6H PRN tablet 01/08/19 Ciprofloxacin HCl [Cipro] 500 mg PO BID #12 tab 01/08/19 Dexamethasone [Decadron] 4 mg PO DAILY #4 tab 01/08/19 Amb Orders for Discharge: Basic Metabolic Panel Time Frame: 01/09/19, Location: Laboratory
[2019-01-08 14:18] VITALS: BP 130/60
[2019-01-08] MEDS ORDERED: ROSUVASTATIN CALCIUM 10 MG TABLET PO SCH (21:00)
[2019-01-08] MEDS ORDERED: GABAPENTIN 300 MG CAPSULE PO SCH (21:00)
== END 2019-01-08 15:05 | disposition home or self-care (01) ==
LOC: ER 02:24 → MS 02:24
PROVIDERS: ADMIT Family Medicine; ATTEND Family Medicine
DX: N39.0 Urinary tract infection, site not specified; E11.9 Type 2 diabetes mellitus without complications; A41.9 Sepsis, unspecified organism; N10 Acute pyelonephritis; J44.1 Chronic obstructive pulmonary disease with (acute) exacerbation
CPT/HCPCS: 36415; 36600; 71020; 71046; 71275; 80053; 81001; 82803; 83519; 83605; 83880; 85025; 85379; 87040; 87077; 87086; 87186; 93005; 94640; 94664; 94760; 96361; 96365; 96372; 99285; G0378